=== PATIENT | female | born 1980 | race Caucasian/White ===

== ENCOUNTER 2022-04-19 03:43 | Emergency (ER) | payer SELFPAY ==
[~2022-04-19] VITALS: Ht 154.9 cm; Wt 87.0 kg
[2022-04-19 04:02] VITALS: BP 136/87
[2022-04-19 07:01] LABS: CHLORIDE 102 mEq/L (98-107); HEMATOCRIT. 40.9 % (36.0-48.0); HEMOGLOBIN. 13.8 g/dL (12.0-16.0); MEAN CORPUSCULAR HEMOGLOBIN 29.4 pg (28.0-32.0); MEAN CORPUSCULAR VOLUME 87.4 fL (81.0-99.0); MEAN PLATELET VOLUME 9.9 fl (7.4-10.4); PLATELET 258 x1000/uL (130-400); RED BLOOD CELL COUNT 4.68 mill/uL (4.2-5.4); RED CELL DISTRIBUTION WIDTH 13.5 % (11.6-14.6)
[2022-04-19 07:10] LABS: ETHANOL BLOOD < 10 mg/dL; PROTHROMBIN TIME 10.4 sec (9.6-11.0)
[2022-04-19 07:17] LABS: HCG SCREEN NEGATIVE
[2022-04-19 07:40] LABS: PLATELET ESTIMATE NORMAL
== END 2022-04-19 16:21 | disposition left against medical advice (07) ==
LOC: ER 03:43
DX: R10.9 Unspecified abdominal pain (principal); Z53.21 Procedure and treatment not carried out due to patient leaving prior to being seen by health care provider
CPT/HCPCS: 36415; 80053; 80320; 84703; 85025; 86850; 86900; 99281; 99283; G0480